=== PATIENT | male | born 1990 | race Caucasian/White ===

== ENCOUNTER 2020-10-13 13:33 | Emergency (ER) | payer OTHER, SELFPAY ==
[2020-10-13 13:35] VITALS: BP 157/82; PULSE 80; RESP 14; TEMP 36.5; O2SAT 97; BMI 32.1
--- NOTE | 2020-10-13 13:39 | DI.RAD.S_ITS ---
PROCEDURE: XR WRIST RT MIN 3V INDICATIONS: wrist pain TECHNIQUE: 4 views of the wrist were acquired. COMPARISON: None. FINDINGS: Bones: No fractures or dislocations. No suspicious bony lesions. Scaphoid view: No navicular fractures are seen. Soft tissues: No suspicious soft tissue calcifications. IMPRESSION: Wrist plain film study within normal limits. Dictated by: Sunil Gavin M.D. on 10/13/2020 at 13:09 Approved by: Sunil Gavin M.D. on 10/13/2020 at 13:10
--- NOTE | 2020-10-13 14:19 | ED.EXTPRO ---
HPI - Extremity Problem General Chief complaint: Extremity Problem,Nontraumatic Stated complaint: Right wrist Time Seen by Provider: 10/13/20 14:19 Source: patient Mode of arrival: Ambulatory Limitations: no limitations History of Present Illness HPI Narrative: 30M smoker presents with significant other and a chief complaint of pain on the volar aspect of his right wrist at the base of his thumb in the absence of any injury. He does have some tingling involving his left thumb and index finger and this has been evolving over the past days to weeks. Patient is engaged in repetitive motion at work and is frequently lifting, rotating his wrist in moving objects, in his work words all day long every day. He states that he had a blip of symptoms a few weeks ago but it had improved and he presents today because things have been worsening. He did take some Motrin on occasion and which seems to help. Additionally, he started using a premade volar wrist splint which actually helped quite a bit. MD Complaint: extremity pain Onset (ago): minute(s) Pain Consistency: constant Location: right Radiation: proximal Relieving factors: rest Associated symptoms: denies other symptoms Related Data Previous Rx's Medication Instructions Recorded ketorolac 10 mg PO Q6H PRN #30 tab 10/13/20 Allergies Allergy/AdvReac Type Severity Reaction Status Date / Time Penicillins Allergy Verified 10/13/20 13:40 Review of Systems Constitutional Constitutional: Denies chills, Denies fatigue, Denies fever(s), Denies frequent falls, Denies lethargy and Denies weakness Eyes Eyes: Denies change in vision, Denies eye discharge, Denies irritation and Denies loss of vision ENT Ears, Nose, Mouth, and Throat: Denies change in voice, Denies dizziness, Denies neck pain, Denies sore throat and Denies throat swelling Cardiovascular Cardiovascular: Denies chest pain, Denies irregular heart rhythm, Denies lightheadedness, Denies palpitations, Denies dyspnea, Denies dyspnea on exertion and Denies orthopnea Respiratory Respiratory: Denies cough, Denies dyspnea, Denies dyspnea on exertion and Denies wheezing Gastrointestinal Gastrointestinal: Denies abdominal pain, Denies change in bowel habits, Denies diarrhea, Denies nausea and Denies vomiting Musculoskeletal Musculoskeletal: Reports arthralgias, Denies neck pain, Denies numbness and Reports tingling Integumentary/Breasts Skin/Breast: Denies pruritus, Denies erythema, Denies rash and Denies wounds Neurologic Neurologic: Denies behavioral changes, Denies confusion, Denies dizziness, Denies frequent falls, Denies loss of vision, Denies numbness, Reports tingling and Denies weakness Psychiatric Psychiatric: Denies anxiety, Denies behavioral changes, Denies confusion, Denies depression, Denies homicidal ideation and Denies suicidal ideation Endocrine Endocrine: Denies fatigue, Denies flushing and Denies palpitations Hematologic/Lymphatic Hematologic/Lymphatic: Denies easy bruising Allergic/Immunologic Allergic/Immunologic: Denies urticaria, Denies throat swelling and Denies wheezing Patient History Social History Smoking Status: Current every day smoker Smoking Status: Current every day smoker tobacco type: vaping alcohol intake frequency: holidays/special occasions only Substance Use Type: does not use Exam Narrative Exam Narrative: GEN: AOx3 and in mild distress EYES: Pupils are equal, round, and reactive to light and accommodation. Extraoccular muscles are intact bilaterally. There is no subconjunctival hemorrhage or exudate. CHEST: Lungs are clear to auscultation bilaterally and free of wheezes, rales, or rhonchi. Heart rate is regular rhythm, there are no murmurs, clicks, rubs, or gallops. There is no chest wall tenderness. ABD: Abdomen is soft and nontender. There is no guarding or rebound. Bowel sounds are normal in all 4 quadrants. There is no mass or organomegaly. EXT: Full painless ROM of all extremities with no loss of sensation or strength. There is pain with Tinel's and reverse Phalen's. This is closed, isolated and neuro intact SKIN: Warm, pink, and dry. No erythema or rash Initial Vital Signs Initial Vital Signs: Vital Signs Temperature 97.7 F 10/13/20 13:35 Pulse Rate 80 10/13/20 13:35 Respiratory Rate 14 10/13/20 13:35 Blood Pressure 157/82 H 10/13/20 13:35 Pulse Oximetry 97 10/13/20 13:35 Course Orders Ordered: ED Orders 10/13/20 13:39 XR wrist RT min 3V Stat Vital Signs Vital signs: Vital Signs - 8 hr 10/13/20 13:35 Temperature 97.7 F Pulse Rate 80 Respiratory Rate 14 Blood Pressure 157/82 H Pulse Oximetry 97 MDM - Extremity (Nontraumatic) Imaging Data Extremity x-ray #1: Radiologist's Impression: [address] [id number] ReportSigned Patient: Ayana Martel#: [id number]: 1990Acct:[id number]/Sex: 30 / MDate of Service: 10/13/20Loc: EDAccession Number: [id number] Procedure: XR wrist RT min 3V Ordering Provider: Cisco Gutierrez MD PROCEDURE: XR WRIST RT MIN 3V INDICATIONS: wrist pain TECHNIQUE: 4 views of the wrist were acquired. COMPARISON: None. FINDINGS: Bones: No fractures or dislocations. No suspicious bony lesions. Scaphoid view: No navicular fractures are seen. Soft tissues: No suspicious soft tissue calcifications. IMPRESSION: Wrist plain film study within normal limits. Dictated by: Sunil Gavin M.D. on 10/13/2020 at 13:09 Approved by: Sunil Gavin M.D. on 10/13/2020 at 13:10 Discharge Plan Departure Patient Disposition: Home Clinical Impression: Acute carpal tunnel syndrome of right wrist Instructions: Carpal Tunnel Syndrome Activity Restrictions/Additional Instructions: *You have been diagnosed with [right wrist pain most likely due to acute carpal tunnel syndrome, reassuring physical exam and x-ray demonstrate no fracture or dislocation.] *What to do: *Please continue to take your regular medications as directed. [ x] New medication prescriptions sent to your pharmacy: [[facility] in [place]] [ ] New medication written as a paper prescription [ ] No new medications given *Please follow up with your primary care provider in 2-3 days, call for an appointment. Let them know you were seen in the Emergency Department and that we ask that you be seen in follow up. We will electronically transmit a record of today's note if your PCP is in our system * as this is most likely an overuse type injury the best medicine for use to limit repetitive motion in your right wrist *If you do not have a primary care provider please contact the [facility] Resource line at [phone]. They will ask some questions about your medical history and help get you set up with a doctor in the community. *Return to Emergency Department if you should have any new, worsening or concerning symptoms, such as [fever greater than 101 F, shaking chills, worsening pain, persistent vomiting or other bothersome symptoms] Prescriptions: New ketorolac 10 mg tablet 10 mg PO Q6H PRN (Reason: pain) Qty: 30 RF: 0 Referrals: [facility] [Outside]
== END 2020-10-13 14:53 | disposition home or self-care (01) ==
PROVIDERS: Emergency Provider Emergency Medicine
DX: G56.01 Carpal tunnel syndrome, right upper limb (principal)
CPT/HCPCS: 73110; 99283

== ENCOUNTER 2021-08-22 11:48 | Emergency (ER) | payer OTHER, SELFPAY ==
[2021-08-22 12:10] VITALS: BP 160/110; PULSE 84; RESP 18; TEMP 36.4; O2SAT 98; BMI 32.8
[2021-08-22 13:17] LABS: Add Manual Diff / Slide Review NO; Basophils Absolute Auto 0 /uL (0-100); Basophils Percent Auto 0.2 % (0-2); Eosinophils Absolute Auto 100 /uL (0-450); Eosinophils Percent Auto 0.9 % (2-4); Hematocrit 43.7 % (41-53); Hemoglobin 15.5 g/dL (13.5-17.5); Lymphocytes Absolute Auto 700 /uL (1100-4500); Lymphocytes Percent Auto 9.5 % (25-40); Mean Corpuscular HGB Conc 35.5 % (30-36); Mean Corpuscular Hemoglobin 32.7 PG (26-34); Mean Corpuscular Volume 92.1 fL (80-100); Monocytes Absolute Auto 500 /uL (0-900); Monocytes Percent Auto 6.5 % (3-14); Neutrophils Absolute Auto 5800 /uL (1500-7000); Neutrophils Percent Auto 82.9 % (50-75); Platelet Count 245 X10^3/uL (150-400); Red Blood Cell Count 4.74 X10^6/uL (4.5-5.9); Red Cell Distribution Width 13.1 % (11.6-14.8)
[2021-08-22 13:29] LABS: Acetaminophen < 10 ug/mL (10-30); Alanine Aminotransferase 21 IU/L (<50); Albumin 4.9 g/dL (3.5-5.0); Albumin Globulin Ratio 1.5 (1.0-2.8); Alkaline Phosphatase 48 U/L (38-126); Aspartate Aminotransferase 26 IU/L (17-59); BUN Creatinine Ratio 9.6 (6-22); Bilirubin Total 0.7 mg/dL (0.2-1.3); Blood Urea Nitrogen 11 mg/dL (9-20); Calcium 9.1 mg/dL (8.4-10.2); Carbon Dioxide 26 mmol/L (22-32); Chloride 100 mmol/L (98-107); Estimated Glomerular Filt Rate > 60.0 mL/min (>60); Ethanol (ETOH) < 10 mg/dL; Globulin 3.2 g/dL (1.7-4.1); Glucose 106 mg/dL (70-100); HEMOLYSIS < 15 (0-50); Potassium 3.8 mmol/L (3.4-5.1); Salicylate < 1.0 mg/dL (<20); Sodium 139 mmol/L (137-145); Total Protein 8.1 g/dL (6.3-8.2)
[2021-08-22 13:34] LABS: COVID19 -Nasal RAPID Negative (Negative)
[2021-08-22 13:39] LABS: UR Morphine/Opiate cutoff 300 Negative (Negative); Ur Creatinine Normal (Normal); Ur Specific Gravity Normal (Normal); Urine Amphetamines Negative (Negative); Urine Barbiturates Negative (Negative); Urine Benzodiazepines Negative (Negative); Urine Cocaine Negative (Negative); Urine MDMA Negative (Negative); Urine Methadone Negative (Negative); Urine Methamphetamines Negative (Negative); Urine Oxycodone Negative (Negative); Urine Phencyclidine Negative (Negative); Urine Tetrahydrocannabinol Negative (Negative); Urine Tricyclic Antidepressant Negative (Negative); Urine pH Normal (Normal)
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
[2021-08-22 13:55] LABS: Free T4, Direct Thyroxine 1.36 ng/dL (0.78-2.19)
[2021-08-22 14:08] LABS: Thyroid Stimulating Hormone 0.676 uIU/mL (0.47-4.68)
--- NOTE | 2021-08-22 16:20 | PC.NURSE ---
pt reports he has been drinking 3 rum drinks nightly for awhile has had periods where the takes breaks from drinking for 4-5 days or more last break was about 1-1/5 weeks ago has never gone in to withrawels or experienced a seizure from not drinking alcohol. only symptom he describes is some increased irritibility on alcohol breaks
[2021-08-22] MEDS: LORazepam 0.5 MG TABLET 1 MG PO (16:31)
[2021-08-22] MEDS: ONDANSETRON 4 MG ODT SL (16:31)
--- NOTE | 2021-08-22 17:57 | PC.NURSE ---
pt on phone with staff at [facility] for intake questioning to determine if he is candidate for placement
[2021-08-22 18:33] VITALS: BP 139/85; PULSE 84; RESP 18; TEMP 37.2; O2SAT 97
--- NOTE | 2021-08-22 19:05 | PC.NURSE ---
BLS @ [address]ui, [address], report #[phone] [facility] P#[phone] F#[phone] report given to rn at [facility]
--- NOTE | 2021-08-22 19:07 | PC.NURSE ---
primary contact Ann Martel spouse [phone]
[2021-08-22 20:20] VITALS: PULSE 70; RESP 18; TEMP 36.4; O2SAT 99
--- NOTE | 2021-08-23 08:37 | CM.SWNOTE ---
GENERAL SERVICE TECHNICIAN Note Late Entry This GENERAL SERVICE TECHNICIAN requested to assist in coordinating dispo for this 31 yo male, presents from work, active duty [employer], admitting to an increase in alcohol consumption, symptoms of severe and persistent depression and anxiety and thoughts of suicide. 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 Getting through to the transfer center proved to be a challenge because all [facility] phone lines were down Then placed call to [facility] who had explained that they had 5 or 6 dual dx beds, however, since patient has Prime, [facility] would need to give this GENERAL SERVICE TECHNICIAN a verbal no beds available before [facility] would cover a civilian facility Placed call to the [facility] Crisis Line in an attempt to get inside the [facility] campus in another way. Inevitably, through [facility] was able to speak with the transfer line contact who confirmed no beds Then confirmed this w/[facility] who accepted the faxed clinical on this patient, and according to notes (this GENERAL SERVICE TECHNICIAN ended shift at 1630) patient was accepted at [facility] for dual dx treatment and transferred yesterday. REYNALDO Anthony
== END 2021-08-22 20:20 ==
PROVIDERS: Emergency Provider Emergency Medicine
DX: F32.A Depression, unspecified (principal); F17.290 Nicotine dependence, other tobacco product, uncomplicated; Z20.822 Contact with and (suspected) exposure to COVID-19
CPT/HCPCS: 36415; 80053; 80305; 80320; 80329; 81003; 84439; 84443; 85025; 87635; 99283; 99284; C9803; G0480